=== PATIENT | female | born 1970 | race Hispanic/Latino ===

== ENCOUNTER 2017-03-12 14:33 | Emergency (ER) | payer SELFPAY ==
[2017-03-12] MEDS ORDERED: Ibuprofen 200 MG TAB ONE (15:03)
--- NOTE | 2017-03-12 15:56 | RAD ---
RIGHT KNEE FOUR VIEWS: History: 47-year-old female with right knee pain following a fall. IMPRESSION: No fracture or dislocation or other significant acute osseous abnormality. POS: [facility]
== END 2017-03-12 15:45 | disposition home or self-care (01) ==
LOC: ERS 14:33
DX: S80.01XA Contusion of right knee, initial encounter (principal); W19.XXXA Unspecified fall, initial encounter; Y92.512 Supermarket, store or market as the place of occurrence of the external cause